=== PATIENT | male | born 1970 | race Caucasian/White ===

== ENCOUNTER 2017-11-27 18:11 | Emergency (ER) | payer OTHER ==
[~2017-11-27] VITALS: Ht 180.3 cm; Wt 59.0 kg
--- NOTE | 2017-11-27 18:52 | ED GENERAL ADULT ---
History of Present Illness General Chief Complaint: Upper Extremity Problem Stated Complaint: R TOE INFLAMMED Source: patient Exam Limitations: no limitations Vital Signs & Intake/Output Vital Signs & Intake/Output Vital Signs Date Time Temp Pulse Resp B/P B/P Pulse O2 O2 Flow FiO2 Mean Ox Delivery Rate 11/28 2123 97.9 86 18 112/64 97 Room Air Room Air 11/27 1915 98.0 87 18 110/61 98 Room Air 11/27 181 97.6 88 22 97 Room Air Room Air Reconcile Medications Sulfamethoxazole/Trimethoprim (Bactrim Ds Tablet) 800 MG-160 MG TABLET 1 TAB PO BID cellulitis Triage Note: TRIAGE: 47 Y/O MALE PRESENTS C/O 03/02 RIGHT SECOND TOE PAIN SINCE LAST NIGHT. +SWELLING AND REDNESS NOTED. Triage Nurses Notes Reviewed? yes Onset: Gradual Duration: day(s): Timing: constant HPI: 47-year-old male with a history of opiate dependence (on methadone maintenance) presenting with atraumatic pain, swelling, and redness to his right second digit (Vicky Lynn) Allergies Coded Allergies: Penicillins (CHILDHOOD REACTION 11/27/17) (Carter HIRSCH,Felicia Dias) Past History Travel History Traveled to [place] past 21 day No Medical History Any Pertinent Medical History? see below for history Psychiatric: opioid dependence Surgical History Surgical History: non-contributory Psychosocial History What is your primary language Guyanese Tobacco Use: Never used ETOH Use: denies use Illicit Drug Use: METHADONE MAINTENANCE Family History Hx Contributory? No (Vicky Lynn) Review of Systems Review of Systems Constitutional: Reports: no symptoms. EENTM: Reports: no symptoms. Respiratory: Reports: no symptoms. Cardiovascular: Reports: no symptoms. GI: Reports: no symptoms. Genitourinary: Reports: no symptoms. Musculoskeletal: Reports: see HPI. Skin: Reports: no symptoms. Neurological/Psychological: Reports: no symptoms. Hematologic/Endocrine: Reports: no symptoms. Immunologic/Allergic: Reports: no symptoms. All Other Systems: Reviewed and Negative (Vicky Lynn) Physical Exam Physical Exam General Appearance: well developed/nourished, no apparent distress, alert, awake , comfortable Head: atraumatic, normal appearance Eyes: Bilateral: normal appearance. Neck: normal inspection Respiratory: normal breath sounds, lungs clear Cardiovascular: regular rate/rhythm Gastrointestinal: soft, non-tender Back: normal inspection Extremities: on exam of the right foot there is circumferential edema, erythema, and diffuse tenderness to palpation of the second digit. Decreased range of motion of the second digit. Sensation intact. motor strength decreased in the right second digit. Distal pulses 2+. patient is able to bear weight, but ambulates with a limp favoring the left side. Neurologic/Psych: awake, alert, oriented x 3, normal mood/affect Skin: intact, warm/dry Core Measures ACS in differential dx? No CVA/TIA Diagnosis: No Sepsis Present: No Sepsis Focused Exam Completed? No (Ynes XIONG,Vicky) Progress Differential Diagnoses I considered the following diagnoses in my evaluation of the patient: [ Cellulitis versus abscess versus osteomyelitis, low concern for gout versus fracture] Plan of Care: Orders Procedure Date/time Status Regular Diet 11/28 B Active LACTIC ACID 11/27 2153 Active Patient Data 11/27 2034 Active ED Holding Orders 11/27 2026 Active Vital Signs 11/27 2026 Active Code Status 11/27 2026 Active FingerStick- Glucose 11/27 1944 Active Add-on Test (ER Only) 11/27 1908 Active BLOOD CULTURE 11/27 1853 Active LACTIC ACID 11/27 1853 Complete WESTERGREN SED RATE 11/27 1853 Complete C-REACTIVE PROTEIN 11/27 1853 Complete CBC WITHOUT DIFFERENTIAL 11/27 1853 Complete BASIC METABOLIC PANEL 11/27 1853 Complete Intake & Output 11/27 181 Active Laboratory Tests 11/27/171915: Anion Gap 8, Estimated GFR > 60, BUN/Creatinine Ratio 26.3 H, Glucose 78, Lactic Acid 0.7, Calcium 9.3, C-Reactive Prot, Quant 2.4 H, CBC w Diff NO MAN DIFF REQ, RBC 3.73 L, MCV 90.0, MCH 30.4, MCHC 33.8, RDW 14.2, MPV 7.9, Gran % 62.5, Lymphocytes % 23.5, Monocytes % 9.2, Eosinophils % 4.2, Basophils % 0.6, Absolute Granulocytes 4.3, Absolute Lymphocytes 1.6, Absolute Monocytes 0.6, Absolute Eosinophils 0.3, Absolute Basophils 0, ESR Westergren 10 Microbiology 11/27 1925 BLOOD: Blood Culture - RECD 11/28 1915 BLOOD: Blood Culture - RECD x-ray IMPRESSION: No evidence of acute osseous abnormality. No radiologic evidence of osteomyelitis involving the right second toe. Small focal erosion at the distal end of the fifth proximal phalanx. No soft tissue air or radiopaque foreign body. Labs show no leukocytosis, and lactate is within normal limits. Given IV vancomycin Discussed with podiatry and recommended admission Patient declining admission at this time, requesting to be discharged home with oral antibiotics and outpatient podiatry follow-up. Patient counseled on the risks of leaving AGAINST MEDICAL ADVICE, and expresses understanding of this time. Discussed with Dr. Austin Initial ED EKG: none (Vicky Lynn) Departure Departure Condition: Stable Referrals: Baldev Weiss DPM Patient Has No Primary Care Dr (PCP/Family) Additional Instructions: You are leaving AGAINST MEDICAL ADVICE and prior to having the podiatry consultation. This puts you at risk of having an infection spread to bone in your toe that might even lead to amputation. Take the antibiotics as prescribed. Follow up with a sleep technician as directed. Return for any concerns or if he would like us to continue evaluation and treatment. Departure Forms: Customer Survey General Discharge Information Prescriptions: Current Visit Scripts Sulfamethoxazole/Trimethoprim (Bactrim Ds Tablet) 1 TAB PO BID #20 TAB (Vicky Lynn) Departure Disposition: HOME OR SELF CARE Clinical Impression Primary Impression: Cellulitis Observation Note Spoke With: Crispin Zelaya MD Physician Advisor Notified: CARTER HIRSCH,FELICIA Dias Place Patient In: Non-ED OBS Care Area Rationale for Observation: My rational for observation is as follows [IV ABX, PODIATRY CONSULT, HIGH RISK OF OSTEO]. PA/DIGITAL ASSET COORDINATOR Co-Sign Statement Statement: ED Attending supervision documentation- [X] I saw and evaluated the patient. I have also reviewed all the pertinent lab results and diagnostic results. I agree with the findings and the plan of care as documented in the PA's/DIGITAL ASSET COORDINATOR's documentation. [X] I have reviewed the ED Record and agree with the PA's/DIGITAL ASSET COORDINATOR's documentation. [] Additions or exceptions (if any) to the PAs/DIGITAL ASSET COORDINATOR's note and plan are summarized below: [Patient has pain swelling and erythema to his second toe on his right foot ever since his son cut his toenails and cut the nail a little bit too short. The redness and pain is now tracking up onto his foot. He denies any fevers but he has had some chills. and cut the nail bed to short period the redness and pain is now tracking up onto his foot. He denies any fevers but he has had some chills. The The p toe has circumferential erythema toe has circumferential erythema with a large blister at the distal aspect. He is tender along the dorsum of the foot. Discussed with podiatry, the patient will have IV antibiotics and will be placed in observation and they will consult on him tomorrow. With a large blister at the distal aspect. He is tender along the dorsum of the foot. Discussed with podiatry, the patient will have IV antibiotics and will be placed in observation and they will consult on him tomorrow. Vianca has pain swelling and erythema to his second toe on his right foot ever since his son cut his toenails. Patient does not want stay in the hospital. Patient verbally understands the risks of leaving prior to having the podiatry consult. Patient verbally understands that he is risking losing his toe. Patient is alert and oriented 3. Patient is competent to make this decision.] (Carter HIRSCH,Felicia Dias) Critical Care Note Critical Care Note Critical Care Time: non-applicable (Vicky Lynn) (Vicky Lynn)
--- NOTE | 2017-11-27 19:22 | RADIOLOGY REPORT ---
EXAMINATION: XR TOES, RIGHT CLINICAL INFORMATION: Pain and swelling at the right second toe. COMPARISON: None TECHNIQUE: 3 views of the right toes were obtained. FINDINGS: There is no evidence of acute fracture or dislocation. No periosteal reaction or osseous destruction is noted with specific attention to the second toe. Soft tissue swelling of the second toe is noted. No evidence of soft tissue air or radiopaque foreign body. Incidental note is made of a small focal erosion at the distal end of the fifth proximal phalanx on the lateral aspect. IMPRESSION: No evidence of acute osseous abnormality. No radiologic evidence of osteomyelitis involving the right second toe. Small focal erosion at the distal end of the fifth proximal phalanx. No soft tissue air or radiopaque foreign body.
[2017-11-27 19:34] LABS: ABSOLUTE BASOPHIL COUNT 0 /CUMM (0.0-0.2); ABSOLUTE EOSINOPHIL COUNT 0.3 /CUMM (0.0-0.7); ABSOLUTE GRANULOCYTE CT 4.3 /CUMM (1.4-6.5); ABSOLUTE LYMPH COUNT 1.6 /CUMM (1.2-3.4); ABSOLUTE MONOCYTE COUNT 0.6 /CUMM (0.10-0.60); BASOPHIL % 0.6 % (0.0-2.0); EOSINOPHIL % 4.2 % (0-5); GRANULOCYTE % 62.5 % (42.2-75.2); HEMATOCRIT 33.6 % (42-52); MEAN CORPUSCULAR HGB 30.4 PG (27.0-31.0); MEAN CORPUSCULAR HGB CONC 33.8 G/DL (33.0-37.0); MEAN PLATELET VOLUME 7.9 FL (7.4-10.4); PLATELET COUNT 149 /CUMM (130-400); RBC DISTRIBUTION WIDTH 14.2 % (11.5-14.5); RED BLOOD CELL CT 3.73 /CUMM (4.70-6.10); WHITE BLOOD CELL COUNT 6.9 /CUMM (4.8-10.8)
--- NOTE | 2017-11-27 21:09 | History & Physical ---
General Information and HPI Allergies/Medications Allergies: Coded Allergies: Penicillins (CHILDHOOD REACTION 11/27/17) Home Med list Sulfamethoxazole/Trimethoprim (Bactrim Ds Tablet) 800 MG-160 MG TABLET 1 TAB PO BID cellulitis Past History Travel History Traveled to [place] past 21 day No Past Family/Social History Psychosocial History ETOH Use: denies use Illicit Drug Use: METHADONE MAINTENANCE Core Measures/Misc (02/07) Sepsis (View protocol) If YES complete Sepsis Event Note If YES complete Sepsis Event Note
[2017-11-27] MEDS ORDERED: BACTRIM DS TAB1 EACH PO (21:13)
[2017-11-27 21:24] VITALS: BP 112/64
[2017-12-13] MEDS ORDERED: BACTRIM DS TAB1 EACH PO (08:44)
== END 2017-11-27 21:25 | disposition left against medical advice (07) ==
LOC: ERH 18:11 → ERHI 20:27 → ERH 20:27 → ERHI 21:25
PROVIDERS: Physician Assistant
DX: L03.115 Cellulitis of right lower limb (principal)
CPT/HCPCS: 73660-RT; 87040; 96374; 96375